=== PATIENT | female | born 1990 | race African-American/Black ===

== ENCOUNTER 2021-08-18 19:11 | Emergency (ER) | payer SELFPAY ==
[~2021-08-18] VITALS: Ht 170.2 cm; Wt 76.0 kg
[2021-08-18] MEDS ORDERED: ACETAMINOPHEN 325MG TABLET PO STA (20:56)
[2021-08-18 21:58] LABS: BASOPHILS % 0.4 % (0.0-2.0); EOSINOPHILS % 1.2 % (0.0-5.0); HEMATOCRIT. 37.5 % (36.0-48.0); HEMOGLOBIN. 12.2 g/dL (12.0-16.0); LYMPHOCYTES % 27.5 % (20.0-50.0); MEAN CORPUSCULAR HEMOGLOBIN 29.7 pg (28.0-32.0); MEAN CORPUSCULAR VOLUME 91.1 fL (81.0-99.0); MEAN PLATELET VOLUME 8.9 fl (7.4-10.4); MONOCYTES % 7.5 % (2.0-8.0); NEUTROPHILS % 63.4 % (40.0-76.0); PLATELET 280 x1000/uL (130-400); RED BLOOD CELL COUNT 4.12 mill/uL (4.2-5.4); RED CELL DISTRIBUTION WIDTH 12.8 % (11.6-14.6)
[2021-08-18 22:07] LABS: CHLORIDE 108 mEq/L (98-107)
[2021-08-18 22:19] LABS: B-HCG QUANTITATIVE 5 mIU/mL (<3)
[2021-08-18 22:39] LABS: CLARITY URINE CLOUDY (CLEAR); COLOR URINE YELLOW (YELLOW); KETONES URINE TRACE (NEGATIVE); LEUKOCYTE ESTERASE URINE TRACE (NEGATIVE); NITRITE URINE NEGATIVE (NEGATIVE); OCCULT BLOOD URINE 2+ (NEGATIVE); PROTEIN URINE NEGATIVE (NEGATIVE); SPECIFIC GRAVITY URINE 1.024 (1.005-1.030)
[2021-08-18] MEDS ORDERED: CEPH500C2 MT (23:02)
[2021-08-18 23:42] VITALS: BP 125/75
== END 2021-08-18 23:45 | disposition home or self-care (01) ==
LOC: ER 19:11
DX: R10.9 Unspecified abdominal pain (principal); N39.0 Urinary tract infection, site not specified
CPT/HCPCS: 36415; 76801; 80053; 81003; 81025; 84702; 85025; 86850; 86900; 99284